=== PATIENT | male | born 1965 | race Hispanic/Latino ===

== ENCOUNTER 2020-08-15 16:52 | Outpatient (CLI) | payer BC ==
--- NOTE | 2020-08-15 17:24 | SJPRAD ---
TWO VIEW CHEST: 08/15/20 HISTORY: Cough. COVID pending. FINDINGS: There are numerous hazy peripheral infiltrates seen throughout both lungs which would be consistent w ith COVID pneumonia. Heart and mediastinum unremarkable. No effusion. IMPRESSION: Hazy bilateral peripheral infiltrates. POS: AGW
== END 2020-08-15 16:53 | disposition home or self-care (01) ==
LOC: SCSRAD 16:52
PROVIDERS: ATTEND Nurse Practitioner Family
DX: U07.1 COVID-19 (principal); R91.8 Other nonspecific abnormal finding of lung field
CPT/HCPCS: 87635; U0003

== ENCOUNTER 2022-04-21 18:00 | Outpatient (CLI) | payer BC | END 2022-04-21 18:01 | disposition home or self-care (01) | LOC: SLEEPLAB 18:00 | PROVIDERS: ATTEND Family Medicine | DX: G47.33 Obstructive sleep apnea (adult) (pediatric) (principal); R06.83 Snoring; E11.9 Type 2 diabetes mellitus without complications; K21.9 Gastro-esophageal reflux disease without esophagitis; G47.00 Insomnia, unspecified; G47.31 Primary central sleep apnea | CPT/HCPCS: 95800 ==

== ENCOUNTER 2022-06-07 19:30 | Outpatient (CLI) | payer BC | END 2022-06-07 19:31 | disposition home or self-care (01) | LOC: SLEEPLAB 19:30 | PROVIDERS: ATTEND Family Medicine | DX: G47.33 Obstructive sleep apnea (adult) (pediatric) (principal); R06.83 Snoring; G47.10 Hypersomnia, unspecified; E66.9 Obesity, unspecified; Z68.32 Body mass index [BMI] 32.0-32.9, adult | CPT/HCPCS: 95811 ==